=== PATIENT | male | born 1985 | race Two or more races ===

== ENCOUNTER 2023-11-23 16:56 | Emergency (ER) | payer SELFPAY ==
[~2023-11-23] VITALS: Ht 177.8 cm; Wt 96.3 kg
[2023-11-23 18:37] LABS: Basophils # (auto) 0.1 10 ^3/uL (0-0.2); Basophils % (auto) 0.9 % (0.0-2.0); Eosinophils # (auto) 0.2 10 ^3/uL (0-0.8); Eosinophils % (auto) 1.7 % (0.0-7.0); Hematocrit 45.4 % (41.0-53.0); Hemoglobin 15.2 g/dL (13.5-17.5); Lymphocytes # (auto) 2.3 10 ^3/uL (0.4-5.4); Lymphocytes % (auto) 24.4 % (10.0-50.0); Mean Corpuscular Hemoglobin 31.4 pg (28.0-32.0); Mean Corpuscular Hgb Conc. 33.4 g/dL (32.0-36.0); Monocytes # (auto) 0.5 10 ^3/uL (0-1.3); Neutrophils # (auto) 6.5 10 ^3/uL (1.6-8.6); Nucleated Red Blood Cells % 0.1 %; Red Blood Cells 4.84 10^6/uL (4.5-5.90); Red Cell Distribution Width 14.1 % (11.8-14.3); White Blood Cell 9.5 10^3/uL (4.4-10.8)
[2023-11-23 18:49] LABS: Alanine Aminotransferase 39 U/L (7-40); Albumin 4.5 g/dL (3.2-4.8); Alkaline Phosphatase 80 U/L (46-116); Anion Gap 5 (5-15); Aspartate Aminotransferase 16 U/L (13-40); Bilirubin, Total 0.4 mg/dL (0.2-1.0); Blood Urea Nitrogen 7 mg/dL (9-23); Calcium 10.3 mg/dL (8.5-10.1); Carbon Dioxide 29 mmol/L (20-30); Chloride 108 mmol/L (98-107); Glucose 89 mg/dL (74-106); Potassium 4.2 mmol/L (3.5-5.1); Sodium 142 mmol/L (136-145); Total Protein 7.2 g/dL (5.7-8.2)
[2023-11-23 18:58] LABS: CRP High Sensitivity 1.13 mg/dL (<1.0)
[2023-11-23 19:24] LABS: Erythrocyte Sedimentation Rate 11 mm/hr (0-20)
[2023-11-23] MEDS: IOHEXOL 300 MG/ML 100ML BOTTLE IJ ONE (20:08)
[2023-11-23] MEDS: PIPERACILLIN-TAZOB 3.375GM 100 ML IV ONE ×2 (21:00→21:53)
[2023-11-23] MEDS ORDERED: ACETAMINOPHEN 325 MG TAB PO PRN (21:15)
[2023-11-23] MEDS ORDERED: ONDANSETRON HCL 4 MG/2 ML VIAL IV PRN (21:15)
[2023-11-23] MEDS ORDERED: TEMAZEPAM 15 MG CAP PO PRN (21:15)
[2023-11-23] MEDS ORDERED: HYDROcodone-ACET 5/325MG TAB PO PRN (21:15)
[2023-11-23 21:53] VITALS: BP 142/94; PULSE 96; RESP 16; TEMP 97.8; O2SAT 95
[2023-11-23] MEDS ORDERED: CLINDAMYCIN 600MG IV 50 ML IV SCH (22:00)
[2023-11-24] MEDS ORDERED: cefTRIAXone 1GM/50ML D5W 50 ML IV SCH (09:00)
== END 2023-11-23 22:07 | disposition home or self-care (01) ==
LOC: ER 17:04 → UNDOADMIN 21:14 → OVERFLOW 21:14 → ER 22:07
DX: L03.114 Cellulitis of left upper limb (principal); M10.9 Gout, unspecified
CPT/HCPCS: 36415; 73080; 73201; 80053; 83605; 84550; 85025; 85652; 86141; 93971; 96365; 99285; J2543; Q9967